=== PATIENT | female | born 1955 | race Caucasian/White ===

== ENCOUNTER 2016-06-27 13:47 | Emergency (ER) | payer SELFPAY ==
[~2016-06-27] VITALS: Ht 154.9 cm; Wt 68.2 kg
[~2016-06-27 13:47] MED LIST: ASPI81 PO; METO25TA6 PO
[2016-06-27] MEDS ORDERED: RANI150T7 PO (13:56)
[2016-06-27 14:02] LABS: GLUCOSE,POINT OF CARE 117 MG/DL (70-110)
[2016-06-27 14:13] VITALS: BP 155/83
[2016-06-27] MEDS ORDERED: KETOROLAC TROMETHAMINE 60 MG/2 ML VIAL IM ONE (14:30)
== END 2016-06-27 15:54 | disposition home or self-care (01) ==
LOC: EMS 13:48
DX: S83.91XA Sprain of unspecified site of right knee, initial encounter (principal); I10 Essential (primary) hypertension; J45.909 Unspecified asthma, uncomplicated; Z88.5 Allergy status to narcotic agent; Z88.6 Allergy status to analgesic agent; Z79.82 Long term (current) use of aspirin; X58.XXXA Exposure to other specified factors, initial encounter; Y93.89 Activity, other specified; Y92.89 Other specified places as the place of occurrence of the external cause; Y99.8 Other external cause status
CPT/HCPCS: 82962; 96372; 99283; J1885

== ENCOUNTER → 2018-03-13 | Emergency (ER) | payer SELFPAY ==
[~2018-03-13] VITALS: Ht 152.4 cm; Wt 69.1 kg
[~2018-03-13] MED LIST changes: +RANI150T7 PO
[2018-03-13 19:17] VITALS: BP 144/86
== END | disposition home or self-care (01) ==
LOC: EMS 17:33
DX: S51.012D Laceration without foreign body of left elbow, subsequent encounter (principal); I10 Essential (primary) hypertension; K21.9 Gastro-esophageal reflux disease without esophagitis; J45.909 Unspecified asthma, uncomplicated; Z88.5 Allergy status to narcotic agent; Z79.82 Long term (current) use of aspirin; X58.XXXD Exposure to other specified factors, subsequent encounter

== ENCOUNTER 2020-09-27 00:39 | Emergency (ER) | payer MEDICAID ==
[~2020-09-27] VITALS: Ht 154.9 cm; Wt 81.8 kg
[~2020-09-27 00:39] MED LIST changes: +ASPI-1450 PO; -ASPI81 PO
[2020-09-27] MEDS ORDERED: PROP120C2 PO (00:58)
[2020-09-27] MEDS ORDERED: OMEP20CA12 PO (00:58)
[2020-09-27 00:59] VITALS: BP 168/78
[2020-09-27] MEDS ORDERED: IBUPROFEN 600 MG TABLET PO ONE (01:30)
[2020-09-27] MEDS ORDERED: ACETAMINOPHEN 500 MG TABLET PO ONE (01:30)
[2020-09-27] MEDS ORDERED: AMOX TR/POT CLAV 875 MG/125 MG TABLET PO ONE (01:30)
== END 2020-09-27 02:21 | disposition home or self-care (01) ==
LOC: EMS 00:40
DX: S61.255A Open bite of left ring finger without damage to nail, initial encounter (principal); L03.012 Cellulitis of left finger; J45.909 Unspecified asthma, uncomplicated; I10 Essential (primary) hypertension; K21.9 Gastro-esophageal reflux disease without esophagitis; Z88.5 Allergy status to narcotic agent; Z79.82 Long term (current) use of aspirin; W55.01XA Bitten by cat, initial encounter; Y93.89 Activity, other specified; Y92.89 Other specified places as the place of occurrence of the external cause; Y99.8 Other external cause status
CPT/HCPCS: 99284; Z7502; Z7610

== ENCOUNTER 2020-11-08 20:40 | Emergency (ER) | payer MEDICAID ==
[~2020-11-08] VITALS: Ht 157.5 cm; Wt 68.2 kg
[~2020-11-08 20:40] MED LIST changes: -METO25TA6 PO; +OMEP20CA12 PO; +PROP120C2 PO; -RANI150T7 PO
[2020-11-08 21:36] LABS: BASOPHILS % (AUTO) 0.4 % (0.0-2.0); EOSINOPHILS % (AUTO) 1.4 % (1.0-6.0); HEMATOCRIT 32.7 % (36-46); HEMOGLOBIN 10.7 g/dL (12.0-16.0); LYMPHOCYTES # (AUTO) 1.8 K/uL (1.0-4.8); LYMPHOCYTES % (AUTO) 27.6 % (22.0-44.0); MEAN CORPUSCULAR HEMOGLOBIN 25.5 pg (26.0-34.0); MEAN CORPUSCULAR HGB CONC 32.6 G/dL (31.0-37.0); MEAN CORPUSCULAR VOLUME 78 fL (80-100); MONOCYTES # (AUTO) 0.5 K/uL (0.1-1.0); MONOCYTES % (AUTO) 8.1 % (2.0-9.0); NEUTROPHILS # (AUTO) 4.1 K/uL (1.8-7.7); NEUTROPHILS % (AUTO) 62.5 % (40.0-70.0); PLATELET COUNT (AUTO) 383 K/uL (150-450); RED BLOOD CELL COUNT(AUTO) 4.18 MIL/uL (4.00-5.20)
[2020-11-08 22:02] LABS: LACTIC ACID 0.8 mmol/L (0.4-2.0)
[2020-11-08 22:03] LABS: B-TYPE NATRIURETIC PEPTIDE 34 pg/mL (0-100)
[2020-11-08 22:06] LABS: ANION GAP 9 mmol/L (8-16); CALCIUM, TOTAL 8.5 mg/dL (8.8-10.5); CARBON DIOXIDE 26 mmol/L (22-29); CHLORIDE 102 mmol/L (98-107); CREATININE 0.66 mg/dL (0.60-1.30); GLOMERULAR FILTR. RATE CALC > 60 mL/min (>60); GLUCOSE,RANDOM 120 mg/dL (70-110); POTASSIUM 4.2 mmol/L (3.5-5.1); SODIUM SERUM 137 mmol/L (136-145); UREA NITROGEN, BLOOD 22 mg/dL (7-18)
[2020-11-08 22:11] LABS: ALANINE AMINOTRANSFERASE 30 U/L (12-78); ALKALINE PHOSPHATASE 143 U/L (46-116); ASPARTATE AMINOTRANSFERASE 20 U/L (15-37); BILIRUBIN,TOTAL 0.1 mg/dL (0.1-1.0); LIPASE 133 U/L (73-393); TOTAL PROTEIN, SERUM 7.8 g/dL (6.4-8.2)
[2020-11-08] MEDS ORDERED: ACETAMINOPHEN 500 MG TABLET PO ONE (23:15)
[2020-11-08 23:45] LABS: COVID AG,FIA SOURCE NASOPHARYNGEAL
[2020-11-09 00:26] LABS: INFLUENZA TYPE A NEGATIVE FOR TYPE A (NEGATIVE); INFLUENZA TYPE B NEGATIVE FOR TYPE B (NEGATIVE)
[2020-11-09] MEDS ORDERED: ALBUTEROL SULFATE HFA 90 MCG/PUFF 8 GM INHALER IH ONE (00:45)
[2020-11-09] MEDS ORDERED: AZITHROMYCIN 500 MG TABLET PO ONE (02:00)
[2020-11-09 02:05] VITALS: BP 155/83
== END 2020-11-09 02:10 | disposition home or self-care (01) ==
LOC: EMS 20:44
DX: J42 Unspecified chronic bronchitis (principal); Z20.822 Contact with and (suspected) exposure to COVID-19; I10 Essential (primary) hypertension; J45.909 Unspecified asthma, uncomplicated; Z79.899 Other long term (current) drug therapy; Z79.82 Long term (current) use of aspirin; Z88.5 Allergy status to narcotic agent
CPT/HCPCS: 36415; 71045; 80053; 83605; 83690; 83880; 84484; 85025; 87040; 87426; 87804; 94640; 99284; A9575; U0003; J3535

== ENCOUNTER 2021-08-09 17:38 | Emergency (ER) | payer MEDICAID ==
[~2021-08-09] VITALS: Ht 157.5 cm; Wt 69.1 kg
[2021-08-09] MEDS ORDERED: KETOROLAC TROMETHAMINE 30 MG/ML VIAL IM ONE (19:45)
[2021-08-09] MEDS ORDERED: GABAPENTIN 300 MG CAPSULE PO ONE (19:45)
[2021-08-09] MEDS ORDERED: METHOCARBAMOL 500 MG TABLET PO ONE (19:45)
[2021-08-09] MEDS ORDERED: PROPRANOLOL HCL 60 MG ER CAPSULE PO ONE (20:15)
[2021-08-09 20:18] VITALS: BP 163/85
[2021-08-09] MEDS ORDERED: METH-659 PO (20:29)
[2021-08-09] MEDS ORDERED: NAPR-1024 PO (20:29)
[2021-08-09] MEDS ORDERED: GABA-1181 PO (20:29)
== END 2021-08-09 21:00 | disposition home or self-care (01) ==
LOC: EMS 17:38
DX: S46.911A Strain of unspecified muscle, fascia and tendon at shoulder and upper arm level, right arm, initial encounter (principal); J45.909 Unspecified asthma, uncomplicated; I10 Essential (primary) hypertension; Z87.19 Personal history of other diseases of the digestive system; Z87.42 Personal history of other diseases of the female genital tract; Z98.890 Other specified postprocedural states; Z88.5 Allergy status to narcotic agent; Z88.8 Allergy status to other drugs, medicaments and biological substances; Z86.39 Personal history of other endocrine, nutritional and metabolic disease; X50.0XXA Overexertion from strenuous movement or load, initial encounter; Y93.89 Activity, other specified; Y92.239 Unspecified place in hospital as the place of occurrence of the external cause; Y99.0 Civilian activity done for income or pay
CPT/HCPCS: 73030; 82962; 96372; 99283; J1885